=== PATIENT | male | born 1960 | race Caucasian/White ===

== ENCOUNTER 2023-04-14 05:58 | Inpatient (IN) | payer OTHER, SELFPAY ==
--- NOTE | 2023-03-16 08:31 | CM ---
Patient is scheduled for a L TK Revision on 04/14/23. Spoke with patient prior to surgery via telephone. Introduced role of Orthopedic Navigator. Patient reports that he lives with his and adult daughter in a two story home. There are one or two
steps to enter and a flight of steps to the second floor. He currently functions independently. He has a rolling walker, cane, raised toilet seat and shower seat from his prior orthopedic surgeries. He has had VN services.
Discussed orthopedic program and post surgical plans. Reviewed anticipated length of stay and that goal is for him to return home at discharge. Also reviewed outpatient PT. Patient is in agreement with tentative plan and will go directly to
outpatient PT at [facility]. He will have support from his when he goes home.
Patient will complete online education.
Plan: Orthopedic Navigator will remain available to assist with the care of patient and will reassess discharge needs after surgery.
[2023-03-28 13:51] VITALS: BMI 31.4
[2023-03-28 14:32] LABS: Hematocrit 41.1 % (39.0-52.0); Hemoglobin 14.3 g/dL (13.0-18.0); Mean Corp Hgb Conc. 34.8 g/dL (33.0-37.0); Mean Corpuscular Hgb 31.5 pg (27.0-31.0); Mean Corpuscular Volume 90.5 fL (80.0-94.0); Mean Platelet Volume 9.6 fL (7.4-10.4); Platelet Count 208 10^3/uL (130-400); Red Blood Cell Count 4.54 10^6/uL (4.70-6.10); Red Cell Dist. Width 13.3 % (11.5-14.5); White Blood Cell Count 6.7 10^3/uL (4.8-10.8)
[2023-03-28 14:42] LABS: Erythrocyte Sed Rate 8 mm/hour (0-20)
[2023-03-28 14:43] LABS: ALT (SGPT) 23 U/L (0-50); AST (SGOT) 30 U/L (17-59); Albumin 4.5 g/dl (3.5-5.0); Alkaline Phosphatase 80 U/L (38-126); Blood Urea Nitrogen 16 mg/dl (9-20); Calcium 9.7 mg/dl (8.4-10.2); Carbon Dioxide 27 mmol/L (22-30); Chloride 103 mmol/L (98-107); Estimated Creatinine Clearance 79 ml/min; Glucose 95 mg/dl (70-99); Potassium 4.4 mmol/L (3.5-5.1); Sodium 136 mmol/L (135-145); Total Protein 7.3 g/dl (6.3-8.2); eGFR > 60.00
[2023-03-28 15:14] LABS: C-Reactive Protein < 5.00 mg/L (0.0-10.00)
[2023-03-28 15:36] LABS: Total Bilirubin 0.8 mg/dl (0.2-1.3)
[2023-03-28 16:41] VITALS: BMI 31.4
[2023-03-29 10:20] LABS: Glycohemoglobin (HgbA1c) 5.5 % (4.0-5.6)
[2023-04-14] VITALS (21 sets, daily range): BP systolic 99–151; BP diastolic 57–91; PULSE 58–62
[2023-04-14] MEDS: CELEBREX 200 MG PO (06:19)
[2023-04-14] MEDS: TYLENOL 650 MG PO ×4 (06:19→20:51)
--- NOTE | 2023-04-14 08:51 | OR.RPT ---
Operative Report
Operative Report
Orthopaedic Surgery Operative Note
DATE OF OPERATION: 04/14/2023
PREOPERATIVE DIAGNOSES: Painful left prosthetic knee; arthrofibrosis
POSTOPERATIVE DIAGNOSES: Same
OPERATION PERFORMED:
- Revision left total knee arthroplasty, single component, without allograft. Polyethylene articular surface exchange.
- Debridement and irrigation left knee down to bone.
SURGEON: Bhupendra Elder MD
ASSISTANTS: Isai Mcqueen PA-C who assisted with patient and limb positioning and retraction
ANESTHESIA: Spinal
COMPLICATIONS: None.
ESTIMATED BLOOD LOSS: 20mL
DRAINS: None
TOURNIQUET TIME: 26 minutes.
IMPLANTS: [employer] Triathlon 9mm #5 X3 polyethylene articular surface
INDICATIONS: The patient presented to my office with left knee pain and stiffness. The patient had undergone TKA about 4 years ago at an outside facility. He had regained his motion intitially after the surgery but then went on to develop stiffness.
He had a manipulation under anesthesia without regaining flexion. His preoperative flexion was about 70-80 degrees. We evaluated possible etiologies for stiffness and discussed treatment options. We reviewed the natural history of this problem, as
well as the risks, benefits, and alternatives of various treatment options. The patient exhausted all nonoperative treatment options and wished to proceed with left revision knee replacement surgery. The patient understood the risks which included,
but were not limited to, bleeding, infection, failure to relieve pain, more pain than preop, damage to blood vessels and nerves, need for reoperation, mechanical failure of the implants, wound healing problems, stiffness, instability, blood clot,
pulmonary embolism, myocardial infarction, pneumonia, arrhythmia, CVA, and . The patient accepted these risks and wished to proceed. All questions were answered, and informed consent was obtained.
PROCEDURE IN DETAIL: The patient was identified in the preoperative holding area. The left knee was identified as the operative site. The patient was taken in the operating room and placed in a supine position on the operating table. Spinal
anesthesia was performed. IV antibiotics and tranexamic acid were administered. A well-padded tourniquet was placed on the proximal thigh. All bony prominences were well padded. The limb was prepped and draped in the usual sterile fashion. Knee
flexion was noted to be limited to about 80 degrees with spinal in place.
We performed a surgical time-out. An interarticular block was performed with local anesthetic with epinephrine. The limb was exsanguinated with an Esmarch bandage, then the tourniquet was inflated to 250 mmHg. The prior anterior midline scar was
excised. Dissection was carried down to the extensor mechanism. A medial parapatellar arthrotomy was performed.
Adhereant thick capsule was encountered noted to be spanning from anterior femur to the extensor mechanism. No purulence or signs of infection. No nodular synnovitis. A complete synnovetomy was performed in suprapatellar pouch and medial and lateral
gutters with care not to damage extensor mechanism or collateral ligaments. A subperiosteal peel was performed on the medial tibia. I excised scar tissue between the patella tendon and the anterior tibia to enhance exposure. The knee was flexed. The
patella was not everted - it was subluxated laterally. Further debridement was carried down, both sharp and with electrocautery, down to bone and the synovium was excised. After this, the knee flexion was to about 100 degrees.
The lateral heterotopic bone was identified in the lateral gutter on the deep surface of the capsule. This was dissected circumferentially and excised intact. After this, the knee flexion was about 110 degrees
The polyethylene liner was removed and inspected and noted to be #5 11mm spacer. The femoral and tibia components were inspected. A bone tamp was used to determine the components were well fixed. They appeared well positioned and well rotated. The
metal surface of the tibia and femur appeared intact without wear or corrosion. Decision was made to keep the femoral and tibial components. Revision equipment was available. With the polyethylene component out, the posterior capsule was debrided
and synovectomy was performed. Trial spacers were inserted. The knee was noted to be balanced medially and laterally in flexion and extension. Decision was made to place a 9mm spacer once this was noted to be well balanced in flexion and extension.
This achieved about 120 degrees flexion with passive gravity flexion.
The knee was copiously irrigated. Any remnant synovium and particles were excised. The final polyethylene spacer was impacted into place and engaged the locking mechanism. No soft tissues was interposed. The knee was again irrigated with copious
saline and dilute betadine soak was performed. A fresh drape was placed on the field.
The arthrotomy was closed with 0-PDS. Once closed, an interarticular block was performed with local anesthetic with epi. The deep dermal layer was closed with 2-0 PDS, and the subcuticular skin was closed with 3-0 monocryl. A Dermabond Prineo
dressing was applied to the skin in full flexion. Once this was completely dry, a sterile waterproof dressing was applied.
The anesthesia team performed an adductor canal block in the OR. The patient awoke from anesthesia without any difficulties. The sponge and instrument counts were correct x2 at the end of the case. I was present and participated in the entire case.
Francesco Elder MD
[2023-04-14] MEDS: ROXICODONE 5 MG PO (10:20)
[2023-04-14] MEDS: NORMOSOL-R 1000 IV (10:20)
[2023-04-14] MEDS: PROSCAR 5 MG PO (11:46)
[2023-04-14] MEDS: FLOMAX PO (11:46)
[2023-04-14] MEDS: DILAUDID 0.25 MG IV (13:30)
--- NOTE | 2023-04-14 14:10 | PTCARENOTE ---
Patient received from PACU in bed; IVF infusing; Surgical site assessed; Patient oriented to unit and call olivares use; Bed in lowest position, wheels locked, call olivares within reach; Safety maintained
[2023-04-14] MEDS: ANCEF 5 IV ×2 (14:50→21:57)
[2023-04-14] MEDS: ZOFRAN 4 MG IV (14:53)
[2023-04-14] MEDS: ROXICODONE 10 MG PO (15:03)
[2023-04-14] MEDS: NON-FORMULARY ITEM OPHTH (15:05)
[2023-04-14] MEDS: LIPITOR 20 MG PO (17:28)
[2023-04-14] MEDS: ASPIRIN 325 MG PO (17:28)
[2023-04-14] MEDS: DILAUDID 0.5 MG IV ×2 (17:37→21:03)
[2023-04-14] MEDS: BACTROBAN 2% OINTMENT 1 APPLIC NASAL (20:50)
[2023-04-14] MEDS: TORADOL 15 MG IV (20:51)
[2023-04-14] MEDS: SENOKOT 17.1999999999999993 MG PO (20:51)
[2023-04-14] MEDS: NEURONTIN 300 MG PO (20:51)
[2023-04-14] MEDS: COLACE 100 MG PO (20:51)
[2023-04-14] MEDS: DECADRON 4 MG PO (20:51)
[2023-04-14] MEDS: PROTONIX 40 MG PO (20:52)
[2023-04-14] MEDS: NON-FORMULARY ITEM 1 DROP OPHTH (20:52)
[2023-04-14] MEDS: FLUSH (NSS) 3 FLUSH IV (20:55)
[2023-04-15] MEDS: TYLENOL 650 MG PO ×4 (00:14→12:13)
[2023-04-15] MEDS: ROXICODONE 2.5 MG PO ×3 (00:21→08:17)
[2023-04-15 03:25] VITALS: BP 147/72
[2023-04-15 07:07] VITALS: BP 139/77
[2023-04-15] MEDS: COLACE 100 MG PO (08:07)
[2023-04-15] MEDS: ASPIRIN 325 MG PO (08:07)
[2023-04-15] MEDS: FLOMAX 0.400000000000000022 MG PO (08:07)
[2023-04-15] MEDS: SENOKOT 17.1999999999999993 MG PO (08:08)
[2023-04-15] MEDS: MOBIC 15 MG PO (08:08)
[2023-04-15] MEDS: DECADRON 4 MG PO (08:09)
[2023-04-15] MEDS: PROSCAR 5 MG PO (08:09)
[2023-04-15] MEDS: TORADOL 15 MG IV (08:10)
[2023-04-15] MEDS: NON-FORMULARY ITEM 1 DROP OPHTH (08:11)
[2023-04-15] MEDS: BACTROBAN 2% OINTMENT 1 APPLIC NASAL (08:12)
[2023-04-15] MEDS: FLUSH (NSS) 2 FLUSH IV (08:14)
--- NOTE | 2023-04-15 08:48 | CM ---
Addendum entered by Pilar Johnson 04/15/23 10:07:
Patient did well in therapy. He has no concerns about going home and will update his .
Original Note:
Reviewed chart and held rounds with PT, OT and nursing. Patient admitted as planned for elective L TK Revision. Met with patient at bedside. Confirmed information previously obtained for assessment. Also discussed discharge plans. The plan is for
patient to return home at discharge. He will have support from his and daughter when he goes home. Patient will go directly to outpatient PT and will go to [facility]. He has an appointment scheduled for Tuesday, 04/18.
Patient has all needed DME at home.
He will use [facility] pharmacy for discharge prescriptions.
[2023-04-15 09:07] VITALS: BP 140/72; PULSE 69; O2SAT 97
[2023-04-15 10:10] VITALS: BP 134/85; PULSE 76; O2SAT 97
--- NOTE | 2023-04-15 10:12 | W.PN.ORTHO ---
Today's Communication / Plan
-
d/c
Assessment
.
Distal Motor Intact: Yes
Dressing:
Clean, dry and intact.
Assessment:
Mechanical Failure -L TKA 04/2022--s/p L TKA Revision 04/14/23
BPH-voiding well-Finasteride resumed w/ addition of Flomax
Plan
.
Surgery / Date: L TKA Revision 04/14/23 Dr. Elder
Activity:
Out of bed.
PT/OT
Discharge Plan: Home w/ Outpatient PT
Subjective
.
.:
Patient resting comfortably.
Vital Signs and Labs
.
Vital Signs and Labs:
Lab Results
03/28/23 13:58
03/28/23 13:58
Temp Pulse Resp BP Pulse Ox
97.9 F 66 19 139/77 96
04/15/23 07:07 04/15/23 07:07 04/15/23 07:07 04/15/23 08:09 04/15/23 07:07
Non-invasive Hgb result: 14.2
Physical Exam
-
HEENT: No pallor, cyanosis, or jaundice. Throat clear.
NECK: Supple. No JVD.
RESPIRATORY: Lungs clear to auscultation.
CVS: S1, S2 normal. RRR.� No murmur, rub or gallop.
ABDOMEN: Soft, non-tender. No distension. BS+/normal.
EXTREMITIES: strength equal, no calf pain with palpation
COMPUTER TESTER: AOx3. No focal deficits. supervisor graphite grossly intact
--- NOTE | 2023-04-15 10:20 | W.DS.TRANS ---
DC Summary - Taste Tester
-
Discharge Instructions:
Discharge Diagnosis/Procedures L TKA Revision 04/14/23 Dr. Elder
Diet As tolerated
Activity With Walker
Driving Restrictions No driving
Bathing Restrictions OK to Shower
Other Services PT
Instructions:
Stand-Alone Forms: Total Hip/Knee Replacement D/C
Changes to Home Medications: Yes
Discharge Medications:
DC Medications w/original date entered in [facility]
Fish Oil 1 dose PO DAILY Supplement 03/23/23
alprazolam 0.5 mg tablet 0.5 mg PO HS anxiety 03/23/23
finasteride 1 mg tablet 1 mg PO DAILY Urinary Issue 03/23/23
lifitegrast 5 % eye drops in a dropperette (Xiidra) 1 drp ophthalmic (eye) BID Supplement 03/23/23
magnesium citrate 150 ml PO DAILY PRN constipation 03/23/23
multivitamin 1 tab PO DAILY Supplement 03/23/23
naproxen 250 mg tablet 250 mg PO BID Pain 03/23/23
omeprazole 40 mg capsule,delayed release 40 mg PO DAILY Gastrointestinal Issue 03/23/23
semaglutide (weight loss) 2.4 mg/0.75 mL subcutaneous pen injector (Wegovy) 2.4 mg SC QWEEK weight loss 03/23/23
simvastatin 40 mg tablet 40 mg PO QPM High Cholesterol 03/23/23
valsartan 160 mg tablet 160 mg PO DAILY Blood Pressure 03/23/23
vit C 250 mg-vit E 90 mg-zinc 40 mg-copper 1 sb-[id number] capsule (PreserVision AREDS-2) 1 tab PO DAILY Supplement 03/23/23
mupirocin 2 % topical ointment 1 applic topical BID infection prevention #1 tube 03/28/23
acetaminophen 325 mg capsule (Tylenol) 650 mg PO QID #2 caps 04/15/23
aspirin 325 mg tablet 325 mg PO DAILY blood clot prevention #1 tab 04/15/23
dexamethasone 4 mg tablet 4 mg PO BID inflammation #6 tabs 04/15/23
docusate sodium 100 mg capsule (Colace) 100 mg PO BID stool softner #1 cap 04/15/23
gabapentin 300 mg capsule 300 mg PO HS sleep/pain #10 caps 04/15/23
magnesium hydroxide 400 mg/5 mL oral suspension (Milk of Magnesia) 30 ml PO HS PRN Constipation #1 mL 04/15/23
meloxicam 15 mg tablet 15 mg PO DAILY anti-inflammatory #14 tabs 04/15/23
oxycodone 5 mg tablet 5 - 10 mg PO Q6HPRN PRN 1 tab moderate-2 tabs severe pain #30 tabs 04/15/23
sennosides 8.6 mg tablet (Senokot) 17.2 mg PO BID laxative #2 tabs 04/15/23
Home Medication Changes
dexamethasone 4 mg tablet 4 mg PO BID inflammation #6 tabs 04/15/23
gabapentin 300 mg capsule 300 mg PO HS sleep/pain #10 caps 04/15/23
oxycodone 5 mg tablet 5 - 10 mg PO Q6HPRN PRN 1 tab moderate-2 tabs severe pain #30 tabs 04/15/23
meloxicam 15 mg tablet 15 mg PO DAILY anti-inflammatory #14 tabs 04/15/23
Cefadroxil 500mg bid #14
Pending Results: No
== END 2023-04-15 13:29 | disposition home or self-care (01) | DRG 489 ==
LOC: 2 SOUTH 05:58
PROVIDERS: ADMITTING PHYSICIAN Orthopaedic Surgery; FAMILY PHYSICIAN Family Medicine; REFERRING PHYSICIAN Physician Assistant Medical
PROC: 0SUW09Z Supplement Left Knee Joint, Tibial Surface with Liner, Open Approach (ICD-10-PCS; 2023-04-14)
PROC: 0SPD09Z Removal of Liner from Left Knee Joint, Open Approach (ICD-10-PCS; 2023-04-14)
PROC: 0SBG0ZZ Excision of Left Ankle Joint, Open Approach (ICD-10-PCS; 2023-04-14)
DX: T84.093A Other mechanical complication of internal left knee prosthesis, initial encounter (principal); Z68.32 Body mass index [BMI] 32.0-32.9, adult; E66.9 Obesity, unspecified; F41.9 Anxiety disorder, unspecified; I10 Essential (primary) hypertension; E78.5 Hyperlipidemia, unspecified; K21.9 Gastro-esophageal reflux disease without esophagitis; G47.33 Obstructive sleep apnea (adult) (pediatric); Y79.2 Prosthetic and other implants, materials and accessory orthopedic devices associated with adverse incidents; N40.0 Benign prostatic hyperplasia without lower urinary tract symptoms
CPT/HCPCS: 36415; 73560; 80053; 83036; 85027; 85652; 86140; 86850; 86900; 86901; 87070; 93005; 97110; 97116; 97162; 97166; 97530; C1776